=== PATIENT | female | born 1955 | race Caucasian/White ===

== ENCOUNTER → 2018-09-09 | Outpatient (CLI) | payer MEDICARE, OTHER | END | disposition home or self-care (01) | LOC: CFH 10:07 | PROVIDERS: ATTEND Nurse Practitioner | DX: I08.3 Combined rheumatic disorders of mitral, aortic and tricuspid valves (principal); R01.1 Cardiac murmur, unspecified | CPT/HCPCS: 93306 ==

== ENCOUNTER 2018-12-11 18:39 | Emergency (ER) | payer MEDICARE, OTHER ==
[~2018-12-11] VITALS: Ht 157.5 cm; Wt 68.0 kg
--- NOTE | 2018-12-11 18:51 | NUR ---
PT. ARRIVES BY [facility] WITH C/O NAUSEA, VOMITING, FEVER, POOL PAIN, URINARY FREQUENCY AND BODY ACHES X 2 DAYS. PT. IS PINK, WARM AND DRY. LUNGS ARE CTA. PT. HAS THE CP MONITOR IN PLACE. IV ACCESS WAS ESTABLISHED IN THE FIELD AND PT. WAS GIVEN A 700CC BOLUS WELL ZOFRAN FOR NAUSEA BISTRO SERVER. 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 PT.'S ABD. IS SOFT AND FLAT WITH BS + X 4 QUADS. PT.'S PULSES ARE +2 THROUGHOUT. PT. HAS THE CALL LIGHT IN PLACE AND THE SIDERAILS ARE UP X 2.
[2018-12-11] MEDS ORDERED: ACETAMINOPHEN 500 MG TABLET ONE (18:56)
[2018-12-11] MEDS ORDERED: ACETAMINOPHEN 500 MG TABLET PO ONE (19:00)
[2018-12-11 19:16] LABS: BASOPHILS # (AUTO) 0.02 x10^3/uL (0-0.1); BASOPHILS % (AUTO) 0 % (0-1); EOSINOPHILS # (AUTO) 0.01 x10^3/uL (0-0.4); EOSINOPHILS % (AUTO) 0 % (1-7); LYMPHOCYTES # (AUTO) 0.94 x10^3/uL (1-3.4); LYMPHOCYTES % (AUTO) 13 % (22-44); MD NO; MEAN CORPUSCULAR HEMOGLOBIN 31.1 pg (27.0-34.8); MEAN CORPUSCULAR HGB CONC 33.2 g/dL (32.4-35.8); MEAN CORPUSCULAR VOLUME 93.4 fL (80-100); MEAN PLATELET VOLUME 7.9 fL (7.4-10.4); MONOCYTES # (AUTO) 0.32 x10^3/uL (0.2-0.8); MONOCYTES % (AUTO) 4 % (2-9); NEUTROPHILS # (AUTO) 5.96 x10^3/uL (1.8-6.8); NEUTROPHILS % (AUTO) 82 % (42-75); PLATELET COUNT 301 x10^3/uL (130-400); RED BLOOD COUNT 4.47 x10^6/uL (3.82-5.3); RED CELL DISTRIBUTION WIDTH 13.9 % (9.6-15.2)
[2018-12-11 19:27] VITALS: BP 144/70
[2018-12-11 19:28] LABS: ALANINE AMINOTRANSFERASE 23 U/L (12-78); ALBUMIN 3.6 g/dL (3.4-5.0); ANION GAP 10 mmol/L (5-15); CALCIUM 8.6 mg/dL (8.5-10.1); CHLORIDE 108 mmol/L (98-107); CREATININE 0.89 mg/dL (0.55-1.02)
--- NOTE | 2018-12-11 19:28 | NUR ---
RECEIVED REPORT FROM LISHA COSTA AT 1900 TO ASSUME CARE OF PT. 2 SETS OF BLOOD CULTURES HAVE BEEN DRAWN AND EKG HAS BEEN COMPLETED ALREADY. PT. MEDICATED PER MAR. ALL MONITORS ARE IN PLACE. NRS ON MONITOR. STRAIGHT CAHT UA COLLECTED PER ORDER; WALKING TO LAB NOW. CALL LIGHT IN REACH. ALL SAFETY MEASURES OBSERVED. AT FOR SUPPORT.
[2018-12-11 19:30] LABS: ALKALINE PHOSPHATASE 66 U/L (45-117); BILIRUBIN,TOTAL 0.9 mg/dL (0.2-1.0)
[2018-12-11 19:49] LABS: MICROSCOPIC NOT IND
[2018-12-11 19:55] LABS: CULTURE INDICATED? NO
[2018-12-11] MEDS ORDERED: ONDANSETRON ODT 4 MG PO ONE (20:30)
[2018-12-11] MEDS ORDERED: ONDANSETRON ODT 4 MG ONE (20:35)
== END 2018-12-11 20:43 | disposition home or self-care (01) ==
LOC: ED 20:00
DX: R11.2 Nausea with vomiting, unspecified (principal); R10.84 Generalized abdominal pain; R35.0 Frequency of micturition
CPT/HCPCS: 36415; 80053; 81003; 83605; 83690; 85025; 87040; 93005; 99284; Q0162

== ENCOUNTER 2019-01-28 09:28 | Outpatient (CLI) | payer MEDICARE, OTHER | END 2019-01-28 23:59 | disposition home or self-care (01) | LOC: CFH 09:28 | PROVIDERS: ATTEND Internal Medicine Cardiovascular Disease | DX: I08.3 Combined rheumatic disorders of mitral, aortic and tricuspid valves (principal) | CPT/HCPCS: 93306 ==

== ENCOUNTER 2019-02-13 07:32 | Day surgery (SDC) | payer MEDICARE, OTHER ==
[2019-02-11 09:17] VITALS: BP 134/83
[2019-02-11 09:37] LABS: BASOPHILS # (AUTO) 0.05 x10^3/uL (0-0.1); BASOPHILS % (AUTO) 1 % (0-1); EOSINOPHILS # (AUTO) 0.19 x10^3/uL (0-0.4); EOSINOPHILS % (AUTO) 3 % (1-7); LYMPHOCYTES # (AUTO) 1.86 x10^3/uL (1-3.4); LYMPHOCYTES % (AUTO) 29 % (22-44); MD NO; MEAN CORPUSCULAR HEMOGLOBIN 30.9 pg (27.0-34.8); MEAN CORPUSCULAR HGB CONC 32.8 g/dL (32.4-35.8); MEAN CORPUSCULAR VOLUME 94.1 fL (80-100); MEAN PLATELET VOLUME 7.7 fL (7.4-10.4); MONOCYTES % (AUTO) 8 % (2-9); NEUTROPHILS # (AUTO) 3.92 x10^3/uL (1.8-6.8); NEUTROPHILS % (AUTO) 60 % (42-75); PLATELET COUNT 298 x10^3/uL (130-400); RED BLOOD COUNT 4.78 x10^6/uL (3.82-5.3); RED CELL DISTRIBUTION WIDTH 14.5 % (9.6-15.2)
[2019-02-11 09:45] LABS: ANION GAP 9 mmol/L (5-15); CALCIUM 8.9 mg/dL (8.5-10.1); CHLORIDE 108 mmol/L (98-107); CREATININE 0.88 mg/dL (0.55-1.02)
[~2019-02-13] VITALS: Ht 157.5 cm; Wt 65.9 kg
[~2019-02-13 07:32] MED LIST: NONE PER PT
[2019-02-13] MEDS ORDERED: MIDAZOLAM 1 MG/ML, 5ML ONE (09:15)
[2019-02-13] MEDS ORDERED: TICAGRELOR 90 MG TABLET ONE (09:15)
[2019-02-13] MEDS ORDERED: FENTANYL PF 100 MCG/2ML ONE (09:15)
[2019-02-13] MEDS ORDERED: LIDOCAINE-MPF 1%, 5ML ONE (09:16)
[2019-02-13] MEDS ORDERED: HEPARIN 1,000 UNITS/ML, 10ML ONE (09:16)
[2019-02-13] MEDS ORDERED: VERAPAMIL 2.5 MG/ML, 2ML ONE (09:16)
[2019-02-13] MEDS ORDERED: BIVALIRUDIN 250 MG ONE (09:16)
[2019-02-13] MEDS ORDERED: NITROGLYCERIN 5 MG/ML, 10ML ONE (09:18)
[2019-02-13] MEDS ORDERED: SODIUM CHLORIDE 0.9% 1,000 ML IV SCH (10:19)
[2019-04-13] MEDS ORDERED: FURO20TA3 PO (08:22)
[2019-04-13] MEDS ORDERED: POTA10TA5 PO (08:22)
[2019-04-13] MEDS ORDERED: ASPI81TA45 PO (08:22)
== END 2019-02-13 12:07 | disposition home or self-care (01) ==
LOC: CACL 07:32
PROVIDERS: ATTEND Internal Medicine Cardiovascular Disease
DX: I35.0 Nonrheumatic aortic (valve) stenosis (principal); I25.10 Atherosclerotic heart disease of native coronary artery without angina pectoris
CPT/HCPCS: 36415; 80048; 85025; 93454; 99156; 99157; C1769; C1894; J1644; J2250; J3010; Q9967; J0583

== ENCOUNTER 2019-05-28 08:33 | Outpatient (CLI) | payer MEDICARE, OTHER ==
[~2019-05-28 08:33] MED LIST changes: +ASPI81TA45 PO; +FURO20TA3 PO; +POTA10TA5 PO
== END 2019-05-28 23:59 | disposition home or self-care (01) ==
LOC: CFH 08:33
PROVIDERS: ATTEND Internal Medicine Cardiovascular Disease
DX: I08.1 Rheumatic disorders of both mitral and tricuspid valves (principal); F10.21 Alcohol dependence, in remission
CPT/HCPCS: 93306

== ENCOUNTER 2019-06-06 16:09 | Outpatient (CLI) | payer MEDICARE, OTHER ==
[2019-06-06 16:28] LABS: BASOPHILS # (AUTO) 0.06 x10^3/uL (0-0.1); BASOPHILS % (AUTO) 1 % (0-1); EOSINOPHILS # (AUTO) 0.33 x10^3/uL (0-0.4); EOSINOPHILS % (AUTO) 4 % (1-7); LYMPHOCYTES % (AUTO) 23 % (22-44); MD NO; MEAN CORPUSCULAR HEMOGLOBIN 29.8 pg (27.0-34.8); MEAN CORPUSCULAR HGB CONC 32.1 g/dL (32.4-35.8); MEAN CORPUSCULAR VOLUME 92.8 fL (80-100); MONOCYTES # (AUTO) 0.81 x10^3/uL (0.2-0.8); MONOCYTES % (AUTO) 10 % (2-9); NEUTROPHILS # (AUTO) 5.19 x10^3/uL (1.8-6.8); NEUTROPHILS % (AUTO) 63 % (42-75); PLATELET COUNT 361 x10^3/uL (130-400); RED BLOOD COUNT 4.64 x10^6/uL (3.82-5.3); RED CELL DISTRIBUTION WIDTH 14.8 % (9.6-15.2)
[2019-06-06 16:49] LABS: T4 (THYROXINE) 6.8 mcg/dL (4.8-13.9)
== END 2019-06-06 23:59 | disposition home or self-care (01) ==
LOC: RAD 16:09
PROVIDERS: ATTEND Thoracic Surgery (Cardiothoracic Vascular Surgery)
DX: I35.0 Nonrheumatic aortic (valve) stenosis (principal); R03.0 Elevated blood-pressure reading, without diagnosis of hypertension; G43.909 Migraine, unspecified, not intractable, without status migrainosus; F10.20 Alcohol dependence, uncomplicated; Z96.643 Presence of artificial hip joint, bilateral
CPT/HCPCS: 36415; 84436; 84443; 84481; 85025

== ENCOUNTER → 2020-06-16 | Outpatient (CLI) | payer MEDICARE, OTHER | END | disposition home or self-care (01) | LOC: CFH 06:46 | PROVIDERS: ATTEND Physician Assistant Medical | DX: I36.1 Nonrheumatic tricuspid (valve) insufficiency (principal) | CPT/HCPCS: 93306 ==

== ENCOUNTER 2020-06-23 15:15 | Outpatient (CLI) | payer MEDICARE, OTHER ==
[2020-06-23 15:43] LABS: ALANINE AMINOTRANSFERASE 29 U/L (12-78); ANION GAP 4 mmol/L (5-15); CHLORIDE 106 mmol/L (98-107); CREATININE 0.79 mg/dL (0.55-1.02)
[2020-06-23 15:45] LABS: ALKALINE PHOSPHATASE 77 U/L (45-117); BILIRUBIN,TOTAL 0.5 mg/dL (0.2-1.0); TOTAL PROTEIN 7.8 g/dL (6.4-8.2)
== END 2020-06-23 23:59 | disposition home or self-care (01) ==
LOC: LAB 15:15
PROVIDERS: ATTEND Physician Assistant Medical
DX: I35.0 Nonrheumatic aortic (valve) stenosis (principal); R03.0 Elevated blood-pressure reading, without diagnosis of hypertension; R79.9 Abnormal finding of blood chemistry, unspecified
CPT/HCPCS: 36415; 80053